=== PATIENT | female | born 1975 ===

== ENCOUNTER 2022-06-08 21:09 | Emergency (ER) | payer OTHER ==
[2022-06-08] MEDS ORDERED: LEVO112T4 PO (21:34)
[2022-06-08] MEDS ORDERED: CHOL25TA4 PO (21:34)
== END 2022-06-08 21:11 | disposition left against medical advice (07) ==
LOC: EMS 21:11
DX: Z53.21 Procedure and treatment not carried out due to patient leaving prior to being seen by health care provider (principal)

== ENCOUNTER 2025-05-21 21:56 | Emergency (ER) | payer OTHER ==
[~2025-05-21] VITALS: Ht 152.4 cm; Wt 99.1 kg
[~2025-05-21 21:56] MED LIST: CHOL25TA4 PO; LEVO112T4 PO
[2025-05-21 22:12] VITALS: BP 139/81; PULSE 84; RESP 16; TEMP 97.9; O2SAT 98
[2025-05-21 23:00] LABS: PLATELET COUNT (AUTO) 303 K/uL (150-450); RED BLOOD CELL COUNT(AUTO) 4.64 MIL/uL (4.00-5.20); RED CELL DISTRIBUTION WIDTH 15.4 % (11.5-14.5); WHITE BLOOD COUNT (AUTO) 7.6 K/uL (4.5-11.0)
[2025-05-21 23:08] LABS: CALCIUM, TOTAL 8.4 mg/dL (8.8-10.5); CREATININE 0.62 mg/dL (0.60-1.30); GLOMERULAR FILTR. RATE CALC > 60 mL/min (>60); GLUCOSE,RANDOM 130 mg/dL (70-110); SODIUM SERUM 137 mmol/L (136-145); UREA NITROGEN, BLOOD 12 mg/dL (7-18)
[2025-05-21 23:15] LABS: ASPARTATE AMINOTRANSFERASE 195.0 U/L (15-37); TOTAL PROTEIN, SERUM 7.7 g/dL (6.4-8.2)
[2025-05-21] MEDS: KETOROLAC TROMETHAMINE 30 MG/ML VIAL IVP ONE (23:16)
[2025-05-21 23:19] LABS: TROPONIN I-HIGH SENSITIVITY 5 ng/L (<51)
== END 2025-05-22 01:20 | disposition home or self-care (01) ==
LOC: EMS 21:57
DX: K80.20 Calculus of gallbladder without cholecystitis without obstruction (principal); K21.9 Gastro-esophageal reflux disease without esophagitis; Z98.890 Other specified postprocedural states; Z79.899 Other long term (current) drug therapy
CPT/HCPCS: 99285; 96374; 80048; 80076; 83690; 84484; 85025; 36415; 93005; 76700; J1885